=== PATIENT | female | born 1960 | race Caucasian/White ===

== ENCOUNTER 2020-12-19 08:20 | Day surgery (SDC) | payer OTHER ==
[~2020-12-19] VITALS: Ht 160 cm; Wt 77.2 kg
[~2020-12-19 08:20] MED LIST: ACET325 PO; ASPI325EC PO; CLIN300 PO; CODACE30 PO; Cleocin HCl150 MG PO; Coumadin5 MG PO; LEVSOD75 PO; LISI20 PO; METO50ER PO; Metoprolol Tart25 MG PO; Prinivil10 MG PO; SYNTHROID PO; SYNTHROID112 MCG PO; XARELTO15 MG PO; Zofran4 MG PO
[2020-12-19] MEDS ORDERED: ERGO400 PO (08:54)
--- NOTE | 2020-12-19 09:10 | NUR ---
History, Chart, Medications and Allergies reviewed before start of procedure. Ambulatory in Day Surgery Lungs clear T/O to Auscultation. Patient confirms NPO status and agrees with scheduled surgery. Pre-Op teaching done. Pt verbalizes understanding. Patient reports completing Chlorhexadine shower X2 prior to admission to hospital.
--- NOTE | 2020-12-19 10:03 | NUR ---
12/19/20 1003 Wero Nunez [place] CATH PLACED PER DR. SANCHEZ INTRA-OPERATIVELY
--- NOTE | 2020-12-19 13:15 | NUR ---
PT ARRIVED BACK TO THE ROOM AT APPROXIMATELY 1245. PT IS DROWSY R/T ANESTHESIA. SHE WAS ABLE TO AMBULATE TO THE BATHROOM, SHE REPORTED URGE TO HAVE A BM. PT WAS ASSISTED WITH 1 PERSON AND A GAIT BELT. PT REPORTS MILD NAUSEA, EMESIS BAG PROVIDED. WILL GIVE ZOFRAN WHEN AVALIABLE. PT DENIES PAIN BUT REPORTS GAS PAIN.
--- NOTE | 2020-12-19 13:35 | NUR ---
PT'S RANDY UPDATED REGARDING PT'S CONDITION. PER PT. REQUEST.
[2020-12-19] MEDS ORDERED: ACET500 PO (17:05)
[2020-12-19] MEDS ORDERED: DOCU100 PO (17:05)
[2020-12-19] MEDS ORDERED: IBUP100S PO (17:07)
[2020-12-19] MEDS ORDERED: OXAYDO5 M1 PO (17:10)
--- NOTE | 2020-12-19 18:48 | NUR ---
PT HAS MET ALL GOALS FOR DISCHARGE. PT HAS AMBULATED MULTIPLE TIMES TO THE BATHROOM WITHOUT ASSISTANCE AND IS STEADY ON HER FEET. SHE HAS BEEN ABLE TO TOLERATE PO ALTHOUGH SHE DENIES FEELING HUNGRY. PT HAS TOLERATED WATER, CRACKERS, AND APPLESAUCE. PT HAS BEEN ABLE TO VOID X2 WITH POST VOID RESIDUAL OF 77ML AFTER THE SECOND VOID. DISCHARGE INSTRUCTIONS PROVIDED AND PT REPORTED UNDERSTANDING. PAIN MANAGED.
--- NOTE | 2020-12-19 19:27 | NUR ---
DISCHARGE PT ESCORTED OUT IN W/C BY GAYLE JUAREZ AT APPROXIMATELY 1900.
== END 2020-12-19 18:45 | disposition home or self-care (01) ==
LOC: ORSCMMR 08:20 → ORD 09:30 → ORSCMMR 09:30 → SURS 13:33 → ORSCMMR 18:45
PROVIDERS: Obstetrics & Gynecology
PROC: 0UT9FZZ Resection of Uterus, Via Natural or Artificial Opening With Percutaneous Endoscopic Assistance (ICD-10-PCS; principal; 2020-12-19 09:30)
PROC: 0DNU4ZZ Release Omentum, Percutaneous Endoscopic Approach (ICD-10-PCS; principal; 2020-12-19 09:30)
PROC: 0UT7FZZ Resection of Bilateral Fallopian Tubes, Via Natural or Artificial Opening With Percutaneous Endoscopic Assistance (ICD-10-PCS; principal; 2020-12-19 09:30)
PROC: 0UT2FZZ Resection of Bilateral Ovaries, Via Natural or Artificial Opening With Percutaneous Endoscopic Assistance (ICD-10-PCS; principal; 2020-12-19 09:30)
DX: N95.0 Postmenopausal bleeding (principal); D25.9 Leiomyoma of uterus, unspecified; N84.0 Polyp of corpus uteri; Q50.5 Embryonic cyst of broad ligament; K66.0 Peritoneal adhesions (postprocedural) (postinfection); I10 Essential (primary) hypertension; E03.9 Hypothyroidism, unspecified; Z79.899 Other long term (current) drug therapy
CPT/HCPCS: 88307; 93005; 93010; A9270; J0171; J0690; J1100; J1885; J2250; J2405; J2704; J2710; J2765; J3010; J7120

== ENCOUNTER → 2021-06-28 | Outpatient (CLI) | payer OTHER ==
[~2021-06-28] MED LIST changes: +ACET500 PO; +DOCU100 PO; +ERGO400 PO; +IBUP100S PO; +OXAYDO5 M1 PO
== END | disposition home or self-care (01) ==
LOC: LAB SHORT 11:26
DX: D22.72 Melanocytic nevi of left lower limb, including hip (principal)
CPT/HCPCS: 88305

== ENCOUNTER → 2021-08-22 | Outpatient (CLI) | payer OTHER | END | disposition home or self-care (01) | LOC: LAB SHORT 08:16 → PLD 08:16 | DX: D22.72 Melanocytic nevi of left lower limb, including hip (principal) | CPT/HCPCS: 88305 ==

== ENCOUNTER → 2022-03-29 | Outpatient (CLI) | payer OTHER ==
[2022-03-30 08:50] LABS: Candida species (DNA Probe) Negative (NEGATIVE); G. vaginalis (DNA Probe) Negative (NEGATIVE); T. vaginalis (DNA Probe) Negative (NEGATIVE)
== END | disposition home or self-care (01) ==
LOC: LAB 17:10 → LAB SHORT 17:10
PROVIDERS: Obstetrics & Gynecology
DX: N76.0 Acute vaginitis (principal)
CPT/HCPCS: 87480; 87510; 87660